=== PATIENT | male | born 1970 | race Asian ===

== ENCOUNTER 2020-08-08 12:46 | Emergency (ER) | payer BC | END 2020-08-08 15:01 | disposition home or self-care (01) | LOC: ERS 12:46 | DX: I83.893 Varicose veins of bilateral lower extremities with other complications (principal); I87.2 Venous insufficiency (chronic) (peripheral) ==

== ENCOUNTER 2022-11-25 06:09 | Day surgery (SDC) | payer BC ==
[2022-11-22 15:39] VITALS: BMI 29.4
[2022-11-25] MEDS ORDERED: Lidocaine 1% (PF) 30 ML VIAL ONE (06:24)
[2022-11-25] MEDS ORDERED: Verapamil 5 MG/2 ML VIAL ONE (06:24)
[2022-11-25] MEDS ORDERED: Nitroglycerin 50 MG/250 ML BOT 250 ML ONE (06:24)
[2022-11-25] MEDS ORDERED: Heparin 10,000 UNITS/ 10 ML VIAL ONE (06:24)
[2022-11-25 07:29] LABS: #Basophils 0.1 thou/uL (0.0-0.2); #Eosinphils 0.5 thou/uL (0.0-0.7); #Monocytes 0.7 thou/uL (0.11-0.59); #Neutrophils 6.5 thou/uL (1.40-6.50); %Basophils 0.7 % (0.0-1.0); %Lymphocytes 34.4 % (21.0-51.0); %Monocytes 6.2 % (0.0-10.0); %Neutrophils 54.3 % (42.0-75.0); Hematocrit 46.1 % (42.0-52.0); Hemoglobin 15.3 g/dL (14.0-18.0); Mean Corpuscular HGB CONC 33.2 g/dL (32.0-36.0); Mean Corpuscular Hemoglobin 29.4 pg (27.0-31.0); Mean Corpuscular Volume 88.5 fl (78.0-98.0); Platelet Count 276 10x3/uL (130-400); RBC Distribution Width 13.7 % (11.5-14.5); Red Blood Cell (RBC) Count 5.21 mill/uL (4.70-6.10); White Blood Cell (WBC) Count 11.9 10x3/uL (4.8-10.8)
[2022-11-25 07:38] LABS: Anion Gap 12 mmol/L (10-20); BUN (Urea Nitrogen) 17 mg/dL (8.9-20.6); Calc. Creatinine Clearance 116 mL/min (70-130); Calcium 9.6 mg/dL (7.8-10.44); Carbon Dioxide 27 mmol/L (22-29); Chloride 103 mmol/L (98-107); Estimated GFR 89; Glucose 125 mg/dL (70-105); Potassium 3.7 mmol/L (3.5-5.1); Sodium 138 mmol/L (136-145)
[2022-11-25] MEDS ORDERED: fentaNYL 50 mcg/mL 1 mL Vial ONE (07:57)
[2022-11-25] MEDS ORDERED: Midazolam HCl 2 mg/2 ml Vial ONE (07:58)
[2022-11-25] MEDS ORDERED: TICAGRELOR 90 MG TABLET ONE (09:21)
[2022-11-25] MEDS ORDERED: Aspirin Chewable 81 MG TAB ONE (09:21)
[2022-11-25] MEDS ORDERED: Iopamidol 370 76% 100 ML VIAL ONE (10:20)
== END 2022-11-25 16:15 | disposition home or self-care (01) ==
LOC: CCL 06:09
PROVIDERS: ATTEND Internal Medicine Cardiovascular Disease
DX: R94.39 Abnormal result of other cardiovascular function study (principal); R55 Syncope and collapse; R94.31 Abnormal electrocardiogram [ECG] [EKG]
CPT/HCPCS: 80048; 85025; 85347; 92928; 92978; 92979; 93005; 93010; 93458; 99152; 99153; C1725; C1753; C1769; C1874; C1887; C1894; C9600; J1644; J2001; J2250; J3010